=== PATIENT | male | born 1995 | race Caucasian/White ===

== ENCOUNTER 2021-08-24 19:10 | Emergency (ER) | payer OTHER ==
[2021-08-24] MEDS ORDERED: fentaNYL 50 MCG/ML SDV IVPUSH ONE (19:32)
[2021-08-24] MEDS ORDERED: Propofol 200 MG/20 ML SDV ONE (19:57)
[2021-08-24] MEDS ORDERED: Midazolam 1 MG/ML 2 ML SDV ONE (19:57)
[2021-08-24] MEDS ORDERED: Ketorolac 30 MG/ML SDV ONE (19:57)
[2021-08-24] MEDS ORDERED: fentaNYL 250 MCG/5 ML SDV ONE (19:58)
[2021-08-24] MEDS ORDERED: Sodium Chloride 0.9% 1,000 ML IV ONE (19:58)
[2021-08-24] MEDS ORDERED: Ketamine HCL/NACL, ISO-OSM 50 MG/5 ML Syringe ONE (19:58)
[2021-08-24] MEDS ORDERED: Morphine 4 MG/ML VIAL ONE (19:59)
== END 2021-08-24 21:08 | disposition home or self-care (01) ==
LOC: MW.ED 19:10
DX: S43.005A Unspecified dislocation of left shoulder joint, initial encounter (principal); W22.8XXA Striking against or struck by other objects, initial encounter
CPT/HCPCS: 23650; 73020; 73030; 99283; J1885; J2250; J2270; J2704; J7030; 23655; 99284; J3010